=== PATIENT | male | born 1985 | race Caucasian/White ===

== ENCOUNTER 2022-09-28 13:22 | Emergency (ER) | payer SELFPAY ==
[2022-09-28] MEDS ORDERED: Acetaminophen/oxyCODONE 325-10 MG Tab PO ONE (13:37)
[2022-09-28] MEDS ORDERED: methylPREDNISolone Sodium Succinate 125 MG/2 ML SDV IM ONE (13:42)
== END 2022-09-28 15:45 | disposition home or self-care (01) ==
LOC: MW.ED 13:22
DX: M54.42 Lumbago with sciatica, left side (principal)
CPT/HCPCS: 72100; 96372; 99283; A9270; J2930

== ENCOUNTER 2022-09-30 16:34 | Emergency (ER) | payer SELFPAY | END 2022-09-30 18:50 | disposition home or self-care (01) | LOC: MW.ED 16:34 | DX: S39.012A Strain of muscle, fascia and tendon of lower back, initial encounter (principal); M54.42 Lumbago with sciatica, left side; X50.0XXA Overexertion from strenuous movement or load, initial encounter | CPT/HCPCS: 99283 ==